=== PATIENT | female | born 2000 | race Caucasian/White ===

== ENCOUNTER 2021-09-10 15:44 | Emergency (ER) | payer BC ==
[2021-09-10 15:59] VITALS: BP 108/66; PULSE 84; TEMP 98.4; BMI 26.9
[2021-09-10] MEDS ORDERED: KETOROLAC TROMETHAMINE 30 MG/1 ML VIAL IM ONE (16:57)
[2021-09-10] MEDS ORDERED: KETOROLAC TROMETHAMINE 30 MG/1 ML VIAL ONE (17:03)
[2021-09-10 17:30] LABS: EPI CELLS 24 /uL (0-25.1); HYALINE CASTS 1 /uL (0-3.1); URINE APPEARANCE CLEAR; URINE BACTERIA 332 /uL (0-1359); URINE BILIRUBIN NEGATIVE (NEGATIVE); URINE COLOR YELLOW; URINE GLUCOSE (UA) NEGATIVE (NEGATIVE); URINE KETONE TRACE (NEGATIVE); URINE LEUK ESTERASE NEGATIVE (NEGATIVE); URINE NITRITE NEGATIVE (NEGATIVE); URINE PROTEIN NEGATIVE (NEGATIVE); URINE UROBILINOGEN 0.2 mg/dL (0.2-1.0); URINE WBC 52 /uL (0-25.8)
[2021-09-10 17:31] LABS: HCG,QUALITATIVE URINE Negative; URINE RBC 60.3 /uL (0-23.9)
== END 2021-09-10 19:37 | disposition home or self-care (01) ==
LOC: JER 15:44 → JERFT 15:44 → JER 19:37
PROC: 3E0233Z Introduction of Anti-inflammatory into Muscle, Percutaneous Approach (ICD-10-PCS; principal; 2021-09-10)
DX: N94.6 Dysmenorrhea, unspecified (principal)
CPT/HCPCS: 76856-TC; 81003; 84703; 87077; 87086; 99284-25

== ENCOUNTER 2021-11-03 21:38 | Emergency (ER) | payer BC, OTHER ==
[2021-11-03 22:05] VITALS: BP 98/64; PULSE 54; TEMP 98.6; BMI 27.3
== END 2021-11-03 23:46 | disposition home or self-care (01) ==
LOC: JER 21:38
DX: S91.209A Unspecified open wound of unspecified toe(s) with damage to nail, initial encounter (principal)
CPT/HCPCS: 99283-25

== ENCOUNTER 2021-11-12 12:57 | Emergency (ER) | payer OTHER ==
[2021-11-12 13:09] VITALS: BP 111/59; PULSE 79; RESP 19; TEMP 98.5; BMI 26.6
[2021-11-12] MEDS ORDERED: KETOROLAC TROMETHAMINE 30 MG/1 ML VIAL IVPUSH ONE (14:24)
[2021-11-12 14:37] LABS: BASO % 0.3 % (0-2.0); EOS % 0.1 % (0-4.5); HEMATOCRIT 37.2 % (32.4-45.2); LYMPH % 10.1 % (8-40); MCH 25.7 pg (25.7-33.7); MCHC 32.4 g/dl (32.0-36.0); MEAN CELL VOLUME 79.3 fl (80-96); MEAN PLT VOLUME 10.4 fl (7.5-11.1); MONO % 5.3 % (3.8-10.2); NEUT % 84.2 % (42.8-82.8); PLATELET COUNT 241 10^3/uL (134-434); RBC 4.69 M/mm3 (3.60-5.2); RDW 15.4 % (11.6-15.6); WHITE BLOOD COUNT 10.5 K/mm3 (4.0-10.0)
[2021-11-12 14:39] LABS: URINE APPEARANCE CLEAR; URINE BILIRUBIN NEGATIVE (NEGATIVE); URINE COLOR YELLOW; URINE GLUCOSE (UA) NEGATIVE (NEGATIVE); URINE KETONE NEGATIVE (NEGATIVE); URINE LEUK ESTERASE NEGATIVE (NEGATIVE); URINE NITRITE NEGATIVE (NEGATIVE); URINE PROTEIN NEGATIVE (NEGATIVE); URINE UROBILINOGEN 0.2 mg/dL (0.2-1.0)
[2021-11-12] MEDS ORDERED: KETOROLAC TROMETHAMINE 30 MG/1 ML VIAL ONE (14:40)
[2021-11-12 15:00] LABS: ALBUMIN 4.1 g/dl (3.4-5.0); BLOOD UREA NITROGEN 11.4 mg/dL (7-18); CALCIUM 8.9 mg/dL (8.5-10.1)
[2021-11-12 15:03] LABS: CREATININE 0.7 mg/dL (0.55-1.3)
[2021-11-12 15:05] LABS: BILIRUBIN,TOTAL 0.3 mg/dL (0.2-1); TOT PROT 7.8 g/dl (6.4-8.2)
[2021-11-12] MEDS ORDERED: SODIUM CHLORIDE 0.9% 500 ML INFUS.BAG IV ONE (17:42)
== END 2021-11-12 18:07 | disposition home or self-care (01) ==
LOC: JER 12:57
PROC: 3E033GC Introduction of Other Therapeutic Substance into Peripheral Vein, Percutaneous Approach (ICD-10-PCS; principal; 2021-11-12)
DX: N83.201 Unspecified ovarian cyst, right side (principal)
CPT/HCPCS: 36415; 76856-TC; 80053; 81003; 84703; 85025; 87086; 99284-25